=== PATIENT | male | born 1985 | race Caucasian/White ===

== ENCOUNTER 2017-09-26 09:09 | Day surgery (SDC) | payer OTHER ==
[~2017-09-26] VITALS: Ht 177.8 cm; Wt 71.4 kg
[~2017-09-26 09:09] MED LIST: GABA600T2 PO; IBUP-1984 PO; LOPE2CAP PO; ONDA8TAB9 PO; PSEU-259 PO; RANI150T44 PO; SUMA50TA PO
[2017-09-26] MEDS ORDERED: DEXL60CA3 PO (09:32)
[2017-09-26] MEDS ORDERED: CETI-102 PO (09:32)
[2017-09-26 09:37] VITALS: BP 128/80
[2017-09-26] MEDS ORDERED: LIDOcaine Viscous 15ml cup ONE (09:48)
[2017-09-26] MEDS ORDERED: fentaNYL/PF 50MCG/1 ML 2ML syringe ONE (09:48)
[2017-09-26] MEDS ORDERED: MIDAZolam 5mg/5ml vial ONE (09:48)
[2017-09-26 10:40] VITALS: BP 115/73
[2017-09-26 10:50] VITALS: BP 115/72
[2017-09-26 11:00] VITALS: BP 123/35
== END 2017-09-26 11:10 | disposition home or self-care (01) ==
LOC: GI LAB 09:09
PROVIDERS: ATTEND Internal Medicine Gastroenterology
DX: K29.50 Unspecified chronic gastritis without bleeding (principal); K44.9 Diaphragmatic hernia without obstruction or gangrene; G89.29 Other chronic pain; Z79.891 Long term (current) use of opiate analgesic; Z87.891 Personal history of nicotine dependence; Z98.890 Other specified postprocedural states; Z79.899 Other long term (current) drug therapy
CPT/HCPCS: 43239; 99152; J2250; J3010; J7030; A4620; G0500

== ENCOUNTER 2017-10-23 08:33 | Outpatient (CLI) | payer OTHER ==
[~2017-10-23 08:33] MED LIST changes: +CETI-102 PO; +DEXL60CA3 PO; -IBUP-1984 PO; -LOPE2CAP PO; -ONDA8TAB9 PO; -PSEU-259 PO; -RANI150T44 PO; -SUMA50TA PO
== END 2017-10-23 23:59 | disposition home or self-care (01) ==
LOC: 64 CT 08:33
PROVIDERS: ATTEND Family Medicine
DX: K29.70 Gastritis, unspecified, without bleeding (principal); K52.9 Noninfective gastroenteritis and colitis, unspecified
CPT/HCPCS: 74176

== ENCOUNTER 2018-02-25 19:41 | Emergency (ER) | payer OTHER ==
[~2018-02-25] VITALS: Ht 177.8 cm; Wt 76.0 kg
[2018-02-25 20:11] LABS: CLARITY,URINE CLEAR (Clear); COLOR,URINE YELLOW (Yellow); GLUCOSE, URINE NEGATIVE (Neg); KETONES,URINE NEGATIVE (Neg); LEUKOCYTE ESTERASE ,URINE NEGATIVE (Neg); NITRITES, URINE NEGATIVE (Neg); OCCULT BLOOD,URINE NEGATIVE (Neg); PROTEIN,URINE NEGATIVE (Neg); UROBILINOGEN,URINE 0.2 E.U/dL (0.2-1.0)
[2018-02-25 20:14] LABS: UA COLLECTION TYPE CLN CATCH MIDSTREAM
[2018-02-25] MEDS ORDERED: ONDA8TAB9 PO (20:26)
[2018-02-25 20:33] VITALS: BP 125/85
== END 2018-02-25 20:34 | disposition home or self-care (01) ==
LOC: ER 19:42
DX: K14.3 Hypertrophy of tongue papillae (principal); R14.0 Abdominal distension (gaseous); R59.0 Localized enlarged lymph nodes; R11.0 Nausea; K59.00 Constipation, unspecified; G89.29 Other chronic pain; K21.9 Gastro-esophageal reflux disease without esophagitis; G43.909 Migraine, unspecified, not intractable, without status migrainosus; Z79.899 Other long term (current) drug therapy
CPT/HCPCS: 81003; 99283

== ENCOUNTER 2018-03-01 19:58 | Emergency (ER) | payer OTHER ==
[~2018-03-01] VITALS: Ht 177.8 cm; Wt 63.1 kg
[~2018-03-01 19:58] MED LIST changes: +ONDA8TAB9 PO
[2018-03-01] MEDS ORDERED: ondansetron/PF 4mg/2ml inj IV ONE (20:40)
[2018-03-01] MEDS ORDERED: ketorolac trometh. 30mg/ml inj. IV ONE (20:40)
[2018-03-01 20:42] LABS: BASOPHILS % (AUTO) 0.2 % (0-1); EOSINOPHILS # (AUTO) 0.2 X10'3 (0-0.9); EOSINOPHILS % (AUTO) 1.9 % (0-6); HEMATOCRIT 39.4 % (42.0-52.0); LYMPHOCYTES # (AUTO) 2.6 X10'3 (1.1-4.8); MEAN CORPUSCULAR HEMOGLOBIN 30.4 PG (27.0-31.0); MEAN CORPUSCULAR VOLUME 92.1 FL (78-98); MEAN PLATELET VOLUME 7.2 FL (7.4-10.4); MONOCYTES # (AUTO) 0.6 X10'3 (0-0.9); MONOCYTES % (AUTO) 7.8 % (2-12); NEUTROPHILS # (AUTO) 4.9 X10'3 (1.8-7.7); NEUTROPHILS % (AUTO) 59.1 % (42-75); PLATELET COUNT 389 X10'3 (140-440); RED BLOOD COUNT 4.28 X10'6 (4.70-6.10); RED CELL DISTRIBUTION WIDTH 12.8 % (11.5-14.5); WHITE BLOOD COUNT 8.3 X10'3 (4.5-11.0)
[2018-03-01 20:49] LABS: PROTHROMBIN TIME 10.2 SECONDS (9.0-12.0)
[2018-03-01 20:49] LABS: CLARITY,URINE CLEAR (Clear); COLOR,URINE YELLOW (Yellow); GLUCOSE, URINE NEGATIVE (Neg); KETONES,URINE NEGATIVE (Neg); LEUKOCYTE ESTERASE ,URINE NEGATIVE (Neg); NITRITES, URINE NEGATIVE (Neg); OCCULT BLOOD,URINE NEGATIVE (Neg); PH,URINE 6.5 (4.8-8.0); PROTEIN,URINE NEGATIVE (Neg); UA COLLECTION TYPE CLN CATCH MIDSTREAM; UROBILINOGEN,URINE 0.2 E.U/dL (0.2-1.0)
[2018-03-01] MEDS ORDERED: normal saline 1000ML IV soln IVB ONE (20:50)
[2018-03-01] MEDS ORDERED: iohexol 300mg/ml 100ml inj. ONE (20:54)
[2018-03-01 21:01] LABS: ALANINE AMINOTRANSFERASE 22 U/L (12-78); ALBUMIN 4.5 G/DL (3.4-5.0); ALBUMIN/GLOBULIN RATIO 1.3 (1.1-1.5); ALKALINE PHOSPHATASE 76 IU/L (46-116); ANION GAP 11 (8-16); ASPARTATE AMINO TRANSFERASE 18 U/L (10-37); BILIRUBIN,TOTAL 0.2 MG/DL (0.1-1.0); BLOOD UREA NITROGEN 13 MG/DL (7-18); BUN/CREATININE RATIO 15.1 (5.4-32.0); CALCIUM 9.4 MG/DL (8.5-10.1); CHLORIDE 100 MMOL/L (99-107); CREATININE 0.86 MG/DL (0.60-1.10); GLUCOSE 84 MG/DL (70-104); POTASSIUM 3.4 MMOL/L (3.5-5.1); SODIUM 140 MMOL/L (135-145); TOTAL CARBON DIOXIDE 29.3 MMOL/L (24-32); TOTAL PROTEIN 7.9 G/DL (6.4-8.2); eGFR > 90 ML/MIN
[2018-03-01] MEDS ORDERED: morphine 4 MG/ML inj SYRINge IV ONE (21:25)
[2018-03-01] MEDS ORDERED: HYDROcodone/acetaminophen 5mg/325mg tablet PO ONE (22:25)
[2018-03-01 22:38] VITALS: BP 109/67
== END 2018-03-01 22:52 | disposition home or self-care (01) ==
LOC: EEVIPCON 19:58 → ER 19:58
DX: R10.31 Right lower quadrant pain (principal); G89.29 Other chronic pain; Z79.899 Other long term (current) drug therapy
CPT/HCPCS: 36415; 74177; 80053; 81003; 85025; 85610; 96374; 96375; 99284; J1885; J2270; J2405; J7030; Q9967

== ENCOUNTER 2018-03-02 16:19 | Emergency (ER) | payer OTHER ==
[~2018-03-02] VITALS: Ht 180.3 cm; Wt 75.0 kg
[2018-03-02] MEDS ORDERED: normal saline 1000ML IV soln IVB ONE (17:00)
[2018-03-02] MEDS ORDERED: ondansetron/PF 4mg/2ml inj IV ONE (17:00)
[2018-03-02 17:22] LABS: BASOPHILS % (AUTO) 0.5 % (0-1); EOSINOPHILS # (AUTO) 0.1 X10'3 (0-0.9); EOSINOPHILS % (AUTO) 1.8 % (0-6); HEMATOCRIT 36.6 % (42.0-52.0); HEMOGLOBIN 12.3 g/dl (14.0-17.9); LYMPHOCYTES # (AUTO) 2.1 X10'3 (1.1-4.8); LYMPHOCYTES % (AUTO) 31.6 % (21-51); MEAN CORPUSCULAR HEMOGLOBIN 30.7 PG (27.0-31.0); MEAN CORPUSCULAR HGB CONC 33.7 % (33.0-36.5); MEAN CORPUSCULAR VOLUME 91.1 FL (78-98); MEAN PLATELET VOLUME 7.4 FL (7.4-10.4); MONOCYTES # (AUTO) 0.6 X10'3 (0-0.9); MONOCYTES % (AUTO) 8.4 % (2-12); NEUTROPHILS # (AUTO) 3.8 X10'3 (1.8-7.7); NEUTROPHILS % (AUTO) 57.7 % (42-75); PLATELET COUNT 353 X10'3 (140-440); RED BLOOD COUNT 4.02 X10'6 (4.70-6.10); RED CELL DISTRIBUTION WIDTH 12.7 % (11.5-14.5); WHITE BLOOD COUNT 6.6 X10'3 (4.5-11.0)
[2018-03-02 17:37] LABS: ALANINE AMINOTRANSFERASE 21 U/L (12-78); ALBUMIN 3.9 G/DL (3.4-5.0); ALBUMIN/GLOBULIN RATIO 1.3 (1.1-1.5); ALKALINE PHOSPHATASE 69 IU/L (46-116); ANION GAP 10 (8-16); ASPARTATE AMINO TRANSFERASE 18 U/L (10-37); BILIRUBIN,TOTAL 0.1 MG/DL (0.1-1.0); BLOOD UREA NITROGEN 9 MG/DL (7-18); BUN/CREATININE RATIO 11.1 (5.4-32.0); C-REACTIVE PROTEIN 1.46 MG/DL (0.0-0.5); CALCIUM 8.9 MG/DL (8.5-10.1); CHLORIDE 103 MMOL/L (99-107); CREATININE 0.81 MG/DL (0.60-1.10); GLUCOSE 109 MG/DL (70-104); POTASSIUM 3.5 MMOL/L (3.5-5.1); SODIUM 142 MMOL/L (135-145); TOTAL CARBON DIOXIDE 28.6 MMOL/L (24-32); eGFR > 90 ML/MIN
[2018-03-02 17:41] VITALS: BP 123/72
[2018-03-02] MEDS ORDERED: albuterol 2.5 MG/3 ML nebule NEB ONE (19:05)
[2018-03-03] MEDS ORDERED: GOLYS PO (08:52)
== END 2018-03-02 19:06 | disposition home or self-care (01) ==
LOC: ER 16:19
DX: R10.84 Generalized abdominal pain (principal); G43.909 Migraine, unspecified, not intractable, without status migrainosus; G89.29 Other chronic pain; Z79.899 Other long term (current) drug therapy
CPT/HCPCS: 36415; 80053; 85025; 85651; 86140; 96361; 96374; 99283; J2405; J7030

== ENCOUNTER 2018-03-03 06:12 | Emergency (ER) | payer OTHER ==
[~2018-03-03] VITALS: Ht 180.3 cm; Wt 80.1 kg
[2018-03-03] MEDS ORDERED: normal saline 1000ML IV soln IVB ONE ×2 (07:05)
[2018-03-03] MEDS ORDERED: proCHLORperazine 10 MG/2 ml inj IV ONE (07:05)
[2018-03-03] MEDS ORDERED: normal saline 1000ml 2,000 ML IV ONE (07:20)
[2018-03-03] MEDS: morphine 2 MG/ML inj. syringe IV PRN ×2 (07:21→08:06)
[2018-03-03 07:36] LABS: BASOPHILS % (AUTO) 0.2 % (0-1); EOSINOPHILS # (AUTO) 0.2 X10'3 (0-0.9); EOSINOPHILS % (AUTO) 2.2 % (0-6); HEMATOCRIT 36.2 % (42.0-52.0); LYMPHOCYTES # (AUTO) 1.8 X10'3 (1.1-4.8); LYMPHOCYTES % (AUTO) 22.9 % (21-51); MEAN CORPUSCULAR HEMOGLOBIN 30.4 PG (27.0-31.0); MEAN CORPUSCULAR HGB CONC 33.2 % (33.0-36.5); MEAN CORPUSCULAR VOLUME 91.7 FL (78-98); MEAN PLATELET VOLUME 7.5 FL (7.4-10.4); MONOCYTES # (AUTO) 0.7 X10'3 (0-0.9); MONOCYTES % (AUTO) 8.4 % (2-12); NEUTROPHILS # (AUTO) 5.2 X10'3 (1.8-7.7); NEUTROPHILS % (AUTO) 66.3 % (42-75); PLATELET COUNT 355 X10'3 (140-440); RED BLOOD COUNT 3.95 X10'6 (4.70-6.10); RED CELL DISTRIBUTION WIDTH 12.5 % (11.5-14.5); WHITE BLOOD COUNT 7.9 X10'3 (4.5-11.0)
[2018-03-03 07:37] LABS: ALANINE AMINOTRANSFERASE 21 U/L (12-78); ALBUMIN 3.8 G/DL (3.4-5.0); ALBUMIN/GLOBULIN RATIO 1.2 (1.1-1.5); ALKALINE PHOSPHATASE 62 IU/L (46-116); ANION GAP 9 (8-16); ASPARTATE AMINO TRANSFERASE 15 U/L (10-37); BILIRUBIN,TOTAL 0.1 MG/DL (0.1-1.0); BLOOD UREA NITROGEN 4 MG/DL (7-18); BUN/CREATININE RATIO 4.4 (5.4-32.0); CALCIUM 8.6 MG/DL (8.5-10.1); CHLORIDE 103 MMOL/L (99-107); CREATININE 0.91 MG/DL (0.60-1.10); GLUCOSE 102 MG/DL (70-104); POTASSIUM 3.2 MMOL/L (3.5-5.1); SODIUM 142 MMOL/L (135-145); TOTAL CARBON DIOXIDE 29.6 MMOL/L (24-32); eGFR > 90 ML/MIN
[2018-03-03] MEDS ORDERED: GOLYS PO (08:52)
[2018-03-03 09:31] VITALS: BP 124/79
== END 2018-03-03 09:33 | disposition home or self-care (01) ==
LOC: ER 06:12
DX: R10.33 Periumbilical pain (principal); K59.00 Constipation, unspecified; R11.10 Vomiting, unspecified; G43.909 Migraine, unspecified, not intractable, without status migrainosus; G89.29 Other chronic pain; Z79.899 Other long term (current) drug therapy
CPT/HCPCS: 36415; 74018; 80053; 85025; 96361; 96374; 96375; 96376; 99284; J0780; J2270; J7030

== ENCOUNTER 2018-03-24 15:37 | Emergency (ER) | payer OTHER ==
[~2018-03-24] VITALS: Ht 177.8 cm; Wt 81.0 kg
[~2018-03-24 15:37] MED LIST changes: +GOLYS PO
[2018-03-24 15:51] VITALS: BP 136/89
[2018-03-24] MEDS ORDERED: dexamethasone sod phosphate 10mg/ml inj IM STA (15:57)
[2018-03-24] MEDS ORDERED: mag hydrox/Alum hydrox/simeth 30ml oral suspension PO ONE (16:00)
[2018-03-24] MEDS ORDERED: LIDOcaine Viscous 15ml cup PO ONE (16:00)
[2018-03-24] MEDS ORDERED: sucralfate 1 gm tablet PO ONE (16:00)
[2018-03-24] MEDS ORDERED: METH4TAB3 PO (16:02)
== END 2018-03-24 16:27 | disposition home or self-care (01) ==
LOC: ER 15:37
DX: J04.0 Acute laryngitis (principal); G89.29 Other chronic pain; G43.909 Migraine, unspecified, not intractable, without status migrainosus; Z79.899 Other long term (current) drug therapy
CPT/HCPCS: 96372; 99284; J1100

== ENCOUNTER 2018-06-13 14:12 | Emergency (ER) | payer OTHER ==
[~2018-06-13] VITALS: Ht 177.8 cm; Wt 77.0 kg
[~2018-06-13 14:12] MED LIST changes: +GABA600T13 PO; -GABA600T2 PO; +METH4TAB3 PO
[2018-06-13] MEDS ORDERED: GOLYS PO ×2 (14:59→15:06)
[2018-06-13] MEDS ORDERED: famotidine 20mg tablet PO ONE (15:00)
[2018-06-13] MEDS ORDERED: mag hydrox/Alum hydrox/simeth 30ml oral suspension PO ONE (15:00)
[2018-06-13 15:15] VITALS: BP 123/83
== END 2018-06-13 15:20 | disposition home or self-care (01) ==
LOC: EEVIPCON 14:12 → ER 14:12
DX: K59.00 Constipation, unspecified (principal); K21.9 Gastro-esophageal reflux disease without esophagitis; G43.909 Migraine, unspecified, not intractable, without status migrainosus; G89.29 Other chronic pain; Z79.899 Other long term (current) drug therapy
CPT/HCPCS: 99283

== ENCOUNTER 2018-06-16 15:28 | Inpatient (IN) | payer OTHER ==
[2018-06-16] VITALS: BP 114/71
[~2018-06-16] VITALS: Ht 177.8 cm; Wt 85.0 kg
[2018-06-16] MEDS ORDERED: ondansetron/PF 4mg/2ml inj IV ONE (15:45)
[2018-06-16] MEDS ORDERED: normal saline 1000ML IV soln IVB ONE (15:45)
[2018-06-16] MEDS: morphine 4 MG/ML inj SYRINge IV PRN ×5 (15:47→20:30)
[2018-06-16 16:05] LABS: BASOPHILS % (AUTO) 0.6 % (0-1); EOSINOPHILS # (AUTO) 0.3 X10'3 (0-0.9); EOSINOPHILS % (AUTO) 5.9 % (0-6); HEMATOCRIT 40.4 % (42.0-52.0); HEMOGLOBIN 13.5 g/dl (14.0-17.9); LYMPHOCYTES # (AUTO) 2.4 X10'3 (1.1-4.8); LYMPHOCYTES % (AUTO) 44.4 % (21-51); MEAN CORPUSCULAR HEMOGLOBIN 30.8 PG (27.0-31.0); MEAN CORPUSCULAR HGB CONC 33.4 g/dL (33.0-36.5); MEAN PLATELET VOLUME 7.7 FL (7.4-10.4); MONOCYTES # (AUTO) 0.4 X10'3 (0-0.9); MONOCYTES % (AUTO) 7.3 % (2-12); NEUTROPHILS # (AUTO) 2.3 X10'3 (1.8-7.7); NEUTROPHILS % (AUTO) 41.8 % (42-75); PLATELET COUNT 272 X10'3 (140-440); RED BLOOD COUNT 4.39 X10'6 (4.70-6.10); WHITE BLOOD COUNT 5.5 X10'3 (4.5-11.0)
[2018-06-16 16:17] LABS: ALANINE AMINOTRANSFERASE 28 U/L (12-78); ALBUMIN 4.6 G/DL (3.4-5.0); ALBUMIN/GLOBULIN RATIO 1.6 (1.1-1.5); ALKALINE PHOSPHATASE 62 IU/L (46-116); ANION GAP 9 (8-16); ASPARTATE AMINO TRANSFERASE 21 U/L (10-37); BILIRUBIN,TOTAL 0.3 MG/DL (0.1-1.0); BLOOD UREA NITROGEN 20 MG/DL (7-18); BUN/CREATININE RATIO 22.2 (5.4-32.0); CALCIUM 9.2 MG/DL (8.5-10.1); CHLORIDE 104 MMOL/L (99-107); GLUCOSE 109 MG/DL (70-104); SODIUM 141 MMOL/L (135-145); TOTAL CARBON DIOXIDE 27.7 MMOL/L (24-32); TOTAL PROTEIN 7.4 G/DL (6.4-8.2); eGFR > 90 ML/MIN
[2018-06-16] MEDS ORDERED: morphine 4 MG/ML inj SYRINge IV ONE (16:20)
[2018-06-16] MEDS ORDERED: ketorolac trometh. 30mg/ml inj. IV ONE (16:20)
[2018-06-16 16:37] LABS: POTASSIUM 2.9 MMOL/L (3.5-5.1)
--- NOTE | 2018-06-16 16:41 | NUR ---
K 2.9 REPORTED TO BRENDON GARCIA
[2018-06-16] MEDS ORDERED: iohexol 300mg/ml 100ml inj. ONE (16:43)
[2018-06-16 16:51] LABS: LIPASE 9953 U/L (73-393)
[2018-06-16] MEDS ORDERED: Potassium Cl inj 40 MEQ in normal saline 250ml IV soln 230 ML IV ONE (17:05)
[2018-06-16] MEDS ORDERED: Potassium Cl 40 MEQ in NS 500 ML IV ONE (17:15)
[2018-06-16] MEDS ORDERED: SUMA100T16 PO (17:46)
[2018-06-16] MEDS ORDERED: METO10TA3 PO (17:46)
[2018-06-16] MEDS ORDERED: OMEP-50 PO (17:46)
[2018-06-16 17:47] LABS: CLARITY,URINE CLEAR (Clear); COLOR,URINE YELLOW (Yellow); GLUCOSE, URINE NEGATIVE (Neg); KETONES,URINE NEGATIVE (Neg); LEUKOCYTE ESTERASE ,URINE NEGATIVE (Neg); NITRITES, URINE NEGATIVE (Neg); OCCULT BLOOD,URINE NEGATIVE (Neg); PH,URINE 6.5 (4.8-8.0); PROTEIN,URINE NEGATIVE (Neg); UROBILINOGEN,URINE 0.2 E.U/dL (0.2-1.0)
[2018-06-16] MEDS ORDERED: DICY20TA14 PO (17:48)
[2018-06-16 17:50] LABS: UA COLLECTION TYPE NON-SPECIFIED
[2018-06-16] MEDS ORDERED: HYDROmorphone 1 mg/ml syringe IV ONE (18:20)
[2018-06-16] MEDS ORDERED: magnesium hydroxide 30ml (MOM) UD suspension PO PRN (19:55)
[2018-06-16] MEDS ORDERED: HYDROcodone/acetaminophen 5mg/325mg tablet PO PRN (19:55)
[2018-06-16] MEDS ORDERED: magnesium 4gm in 100ml NS 100 ML IV PRN (19:55)
[2018-06-16] MEDS ORDERED: magnesium 2GM in 50ml NS 50 ML IV PRN (19:55)
[2018-06-16] MEDS ORDERED: mag hydrox/Alum hydrox/simeth 30ml oral suspension PO PRN (19:55)
[2018-06-16] MEDS ORDERED: ondansetron/PF 4mg/2ml inj IV PRN (19:55)
[2018-06-16] MEDS ORDERED: magnesium Cl slow-release 64mg tablet PO PRN (19:55)
[2018-06-16] MEDS ORDERED: potassium Cl 40MEQ/NS 500ml 500 ML IV PRN ×2 (19:55)
[2018-06-16] MEDS ORDERED: HYDROcodone/acetaminophen 10/325mg tab PO PRN (19:55)
[2018-06-16] MEDS ORDERED: potassium Cl 20 mEq SR tablet PO PRN ×2 (19:55)
[2018-06-16] MEDS ORDERED: morphine 4 MG/ML inj SYRINge IV PRN ×2 (19:55)
[2018-06-16] MEDS ORDERED: acetaminophen 325mg tablet PO PRN ×2 (19:55)
--- NOTE | 2018-06-16 21:30 | NUR ---
Patient to room 355 B from the ED. Patient report received from DEMETRIA Arevalo. Patient alert and oriented at this time. VSS. BLL. call light in reach. Will page about casandra lakhani for pain control at patient request.
[2018-06-16] MEDS ORDERED: CADD PCA waste documentation MC SCH (22:35)
[2018-06-16] MEDS: normal saline 1000ml 1,000 ML IV SCH (23:08)
[2018-06-16] MEDS: HYDROmorphone/NS 1 mg/ml CADD 50 ML IV SCH (23:13)
[2018-06-16] MEDS: heparin, porcine 5000 units/ml vial SQ SCH (23:49)
[2018-06-16] MEDS ORDERED: ondansetron 4mg rapidly disintigrating tab PO PRN (23:50)
[2018-06-16] MEDS ORDERED: SUMAtriptan 25 MG tablet PO PRN (23:50)
[2018-06-16] MEDS ORDERED: metoclopramide 10mg tablet PO PRN (23:50)
[2018-06-17] MEDS: gabapentin 300mg capsule PO SCH ×4 (00:18→23:50)
[2018-06-17] MEDS: famotidine/PF 10 mg/ml inj IV SCH ×2 (00:18→07:12)
[2018-06-17] MEDS: HYDROmorphone/NS 1 mg/ml CADD 50 ML IV SCH ×6 (01:00→10:55)
[2018-06-17 05:28] LABS: BASOPHILS % (AUTO) 0.6 % (0-1); EOSINOPHILS # (AUTO) 0.3 X10'3 (0-0.9); EOSINOPHILS % (AUTO) 6.8 % (0-6); HEMATOCRIT 36.4 % (42.0-52.0); HEMOGLOBIN 12.2 g/dl (14.0-17.9); LYMPHOCYTES # (AUTO) 1.1 X10'3 (1.1-4.8); MEAN CORPUSCULAR HGB CONC 33.4 g/dL (33.0-36.5); MEAN CORPUSCULAR VOLUME 92.9 FL (78-98); MEAN PLATELET VOLUME 7.9 FL (7.4-10.4); MONOCYTES # (AUTO) 0.5 X10'3 (0-0.9); MONOCYTES % (AUTO) 11.6 % (2-12); NEUTROPHILS # (AUTO) 2.7 X10'3 (1.8-7.7); PLATELET COUNT 224 X10'3 (140-440); RED BLOOD COUNT 3.92 X10'6 (4.70-6.10); RED CELL DISTRIBUTION WIDTH 13.1 % (11.5-14.5); WHITE BLOOD COUNT 4.6 X10'3 (4.5-11.0)
[2018-06-17 05:48] LABS: ALBUMIN 3.6 G/DL (3.4-5.0); ANION GAP 4 (8-16); BLOOD UREA NITROGEN 17 MG/DL (7-18); BUN/CREATININE RATIO 21.3 (5.4-32.0); CHLORIDE 108 MMOL/L (99-107); CHOL/HDL RATIO 6.7 (0.00-4.99); CHOLESTEROL 181 MG/DL (0-200); GLUCOSE 99 MG/DL (70-104); HDL CHOLESTEROL 27 MG/DL (35-60); LDL CHOLESTEROL 117 MG/DL (50-100); LIPASE 1126 U/L (73-393); MAGNESIUM 2.3 MG/DL (1.5-2.4); PHOSPHORUS 3.4 MG/DL (2.3-4.5); POTASSIUM 3.9 MMOL/L (3.5-5.1); SODIUM 142 MMOL/L (135-145); TOTAL CARBON DIOXIDE 30.4 MMOL/L (24-32); TRIGLYCERIDES 246 MG/DL (20-135); eGFR > 90 ML/MIN
[2018-06-17] MEDS: normal saline 1000ml 1,000 ML IV SCH ×2 (05:52→08:51)
--- NOTE | 2018-06-17 06:30 | NUR ---
Problems reprioritized. Patient report given, questions answered & plan of care reviewed with DEMETRIA Cam.
[2018-06-17] MEDS: heparin, porcine 5000 units/ml vial SQ SCH ×2 (07:17→20:52)
[2018-06-17] MEDS: K and/or MAG REPLACEMENT MC SCH (07:20)
[2018-06-17 08:00] VITALS: BP 109/76
[2018-06-17] MEDS: HYDROcodone/acetaminophen 5mg/325mg tablet PO PRN (11:55)
[2018-06-17 12:00] VITALS: BP 118/75
--- NOTE | 2018-06-17 12:14 | NUR ---
Malnutrition consult: Pt admit w/ abdominal pain and mild/early pancreatitis per CT w/ lipase 9953; down to 1126 today. TG 234 as well. Per MD note possibly r/t omeprazole pt takes at home for GERD hx. Likely TG also influencing given labs. Pt advanced to clear liquids from NPO. Pt seen by RD for written hypertriglyceridemia ed; pt remains nauseous and RD encouraged to contact if any questions. Pt agrees to ensure clears TIDWM w/ new diet advancement; added to meals and dietary/MD notified. 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 Pt has no edema/wounds, no wt loss hx, no weakness and does not qualify for malnutrition at this time. Will continue to monitor for diet advancement and PO tolerance. Rec: 1. advance diet per MD to heart healthy 2. ensure enlive TIDWM while on clears 3. monitor for further ONS needs once diet advances 4. wt per rx Addendum: 06/17/18 at [address] Amended: Links added.
[2018-06-17] MEDS ORDERED: NUT.TX.IMPAIRED DIGEST FXN (Ensure Clear) 237 ML PO SCH (13:00)
[2018-06-17] MEDS ORDERED: SUMAtriptan succ. 6 MG/0.5ml vial SQ ONE (14:25)
[2018-06-17] MEDS ORDERED: ketorolac trometh. 30mg/ml inj. IV PRN (14:25)
[2018-06-17] MEDS: ondansetron/PF 4mg/2ml inj IV PRN (15:05)
[2018-06-17] MEDS: pantoprazole 40 MG vial IV SCH (15:05)
--- NOTE | 2018-06-17 18:30 | NUR ---
Patient in room [facility]. I have received report from Dorina AUGUSTIN and had the opportunity to ask questions and assume patient care. Patient resting in bed, and daughter visiting and headed home. Patient denies nausea and pain. Will continue to monitor.
--- NOTE | 2018-06-17 18:43 | NUR ---
Problems reprioritized. Patient report given, questions answered & plan of care reviewed with LIA AUGUSTIN.
[2018-06-17 19:00] VITALS: BP 120/72
[2018-06-17] MEDS ORDERED: Potassium Cl inj 20 MEQ in normal saline 1000ml 1,000 ML IV SCH (19:52)
[2018-06-17] MEDS: Potassium Cl inj 20 MEQ in normal saline 1000ml 1,000 ML IV SCH (20:50)
[2018-06-17] MEDS ORDERED: docusate sod 250mg capsule PO SCH (21:00)
[2018-06-18] VITALS: BP 113/76
[2018-06-18 05:27] LABS: ALBUMIN 3.9 G/DL (3.4-5.0); ANION GAP 8 (8-16); BLOOD UREA NITROGEN 6 MG/DL (7-18); BUN/CREATININE RATIO 7.2 (5.4-32.0); CALCIUM 9.4 MG/DL (8.5-10.1); CHLORIDE 103 MMOL/L (99-107); CREATININE 0.83 MG/DL (0.60-1.10); GLUCOSE 99 MG/DL (70-104); LIPASE 195 U/L (73-393); PHOSPHORUS 3.5 MG/DL (2.3-4.5); POTASSIUM 3.8 MMOL/L (3.5-5.1); SODIUM 138 MMOL/L (135-145); TOTAL CARBON DIOXIDE 27.2 MMOL/L (24-32); eGFR > 90 ML/MIN
[2018-06-18] MEDS: Potassium Cl inj 20 MEQ in normal saline 1000ml 1,000 ML IV SCH (05:58)
--- NOTE | 2018-06-18 06:05 | NUR ---
Patient in room [facility]. I have received report from DEMETRIA Mauro and had the opportunity to ask questions and assume patient care.
--- NOTE | 2018-06-18 06:11 | NUR ---
Problems reprioritized. Patient report given, questions answered & plan of care reviewed with Asha AUGUSTIN and Tamia RN. Patient resting eyes closed respirations even.
[2018-06-18 07:30] VITALS: BP 124/80
[2018-06-18] MEDS: ondansetron/PF 4mg/2ml inj IV PRN (07:32)
[2018-06-18] MEDS: HYDROcodone/acetaminophen 5mg/325mg tablet PO PRN (07:35)
[2018-06-18] MEDS: K and/or MAG REPLACEMENT MC SCH (08:00)
[2018-06-18] MEDS ORDERED: metoclopramide 5 mg/ml inj IV ONE (09:10)
[2018-06-18] MEDS: pantoprazole 40 MG vial IV SCH (10:15)
[2018-06-18] MEDS: heparin, porcine 5000 units/ml vial SQ SCH (10:16)
[2018-06-18] MEDS: gabapentin 300mg capsule PO SCH (10:16)
[2018-06-18] MEDS ORDERED: PANT-47 PO (13:14)
[2018-06-18] MEDS ORDERED: DOCU-28 PO (13:19)
--- NOTE | 2018-06-18 16:00 | NUR ---
Pt discharged to home with all belongings in private vehicle. Discharge instructions and medications reviewed. New prescriptions delivered by [facility]. IV DC'd, cannula intact. Pt instructed to follow up with PCP in 1 week and to return to ED if symptoms return. Pt escorted to front lobby by RN.
== END 2018-06-18 15:55 | disposition home or self-care (01) | DRG 440 ==
LOC: ER 15:28 → ED HOLD 19:57 → EDBEDREQ 21:24 → SUR 3N 21:50 → CMPBEDREQ 22:32
PROVIDERS: ADMIT Hospitalist; ATTEND Internal Medicine
PROC: BW211ZZ Computerized Tomography (CT Scan) of Abdomen and Pelvis using Low Osmolar Contrast (ICD-10-PCS; principal; 2018-06-16)
DX: K85.00 Idiopathic acute pancreatitis without necrosis or infection (principal); E86.0 Dehydration; E87.6 Hypokalemia; K21.9 Gastro-esophageal reflux disease without esophagitis; K29.50 Unspecified chronic gastritis without bleeding; K59.09 Other constipation; G43.909 Migraine, unspecified, not intractable, without status migrainosus; G89.29 Other chronic pain; Z79.899 Other long term (current) drug therapy
CPT/HCPCS: 36415; 74177; 76700; 80048; 80053; 80061; 81003; 83690; 83735; 84100; 85025; 87070; 96365; 96375; 99285; C9113; G0378; J1170; J1644; J1885; J2270; J2405; J2765; J3030; J3480; J3490; J7030; J8597; Q9967

== ENCOUNTER 2018-08-18 13:31 | Emergency (ER) | payer OTHER ==
[~2018-08-18] VITALS: Ht 177.8 cm; Wt 81.8 kg
[~2018-08-18 13:31] MED LIST changes: -CETI-102 PO; -DEXL60CA3 PO; +DOCU-28 PO; -GOLYS PO; -METH4TAB3 PO; +METO10TA3 PO; -ONDA8TAB9 PO; +PANT-47 PO; +SUMA100T16 PO
[2018-08-18] MEDS ORDERED: normal saline 1000ML IV soln IVB ONE (13:50)
[2018-08-18] MEDS ORDERED: ondansetron/PF 4mg/2ml inj IV ONE (13:50)
[2018-08-18 14:06] LABS: BASOPHILS % (AUTO) 0.6 % (0-1); EOSINOPHILS # (AUTO) 0.4 X10'3 (0-0.9); EOSINOPHILS % (AUTO) 5.7 % (0-6); HEMATOCRIT 41.4 % (42.0-52.0); HEMOGLOBIN 14.1 g/dl (14.0-17.9); LYMPHOCYTES # (AUTO) 2.1 X10'3 (1.1-4.8); LYMPHOCYTES % (AUTO) 28.2 % (21-51); MEAN CORPUSCULAR HEMOGLOBIN 30.7 PG (27.0-31.0); MEAN CORPUSCULAR HGB CONC 34.1 g/dL (33.0-36.5); MEAN CORPUSCULAR VOLUME 89.9 FL (78-98); MEAN PLATELET VOLUME 8.4 FL (7.4-10.4); MONOCYTES # (AUTO) 0.6 X10'3 (0-0.9); MONOCYTES % (AUTO) 7.8 % (2-12); NEUTROPHILS # (AUTO) 4.3 X10'3 (1.8-7.7); NEUTROPHILS % (AUTO) 57.7 % (42-75); PLATELET COUNT 275 X10'3 (140-440); RED CELL DISTRIBUTION WIDTH 13.3 % (11.5-14.5); WHITE BLOOD COUNT 7.5 X10'3 (4.5-11.0)
[2018-08-18 14:13] LABS: ALANINE AMINOTRANSFERASE 22 U/L (12-78); ALBUMIN 4.6 G/DL (3.4-5.0); ALBUMIN/GLOBULIN RATIO 1.4 (1.1-1.5); ALKALINE PHOSPHATASE 59 IU/L (46-116); ANION GAP 8 (8-16); ASPARTATE AMINO TRANSFERASE 11 U/L (10-37); BILIRUBIN,TOTAL 0.3 MG/DL (0.1-1.0); BLOOD UREA NITROGEN 13 MG/DL (7-18); BUN/CREATININE RATIO 12.4 (5.4-32.0); CALCIUM 9.4 MG/DL (8.5-10.1); CHLORIDE 102 MMOL/L (99-107); CREATININE 1.05 MG/DL (0.60-1.10); GLUCOSE 97 MG/DL (70-104); LIPASE 95 U/L (73-393); POTASSIUM 3.4 MMOL/L (3.5-5.1); SODIUM 139 MMOL/L (135-145); TOTAL CARBON DIOXIDE 28.6 MMOL/L (24-32); TOTAL PROTEIN 7.9 G/DL (6.4-8.2); eGFR 82 ML/MIN
[2018-08-18] MEDS ORDERED: ONDA4TAB12 PO (14:30)
[2018-08-18 14:39] VITALS: BP 104/58
== END 2018-08-18 14:41 | disposition home or self-care (01) ==
LOC: ER 13:32
DX: E86.0 Dehydration (principal); R11.2 Nausea with vomiting, unspecified; R10.84 Generalized abdominal pain; G43.909 Migraine, unspecified, not intractable, without status migrainosus; K21.9 Gastro-esophageal reflux disease without esophagitis; G89.29 Other chronic pain; Z79.899 Other long term (current) drug therapy
CPT/HCPCS: 36415; 80053; 83690; 85025; 85610; 96361; 96374; 99283; J2405; J7030

== ENCOUNTER 2018-09-24 10:23 | Outpatient (CLI) | payer OTHER ==
[~2018-09-24 10:23] MED LIST changes: +ONDA4TAB12 PO
[2018-09-24 11:48] LABS: CHOL/HDL RATIO 5.2 (0.00-4.99); CHOLESTEROL 187 MG/DL (0-200); HDL CHOLESTEROL 36 MG/DL (35-60); LDL CHOLESTEROL 120 MG/DL (50-100); TRIGLYCERIDES 148 MG/DL (20-135)
== END 2018-09-24 23:59 | disposition home or self-care (01) ==
LOC: LAB 10:23
PROVIDERS: ATTEND Family Medicine
DX: E78.00 Pure hypercholesterolemia, unspecified (principal)
CPT/HCPCS: 36415; 80061

== ENCOUNTER 2018-09-28 19:58 | Emergency (ER) | payer OTHER ==
[~2018-09-28] VITALS: Ht 177.8 cm; Wt 81.8 kg
[2018-09-28 20:15] LABS: BASOPHILS % (AUTO) 0.5 % (0-1); EOSINOPHILS # (AUTO) 0.1 X10'3 (0-0.9); EOSINOPHILS % (AUTO) 1.5 % (0-6); HEMATOCRIT 43.9 % (42.0-52.0); HEMOGLOBIN 14.7 g/dl (14.0-17.9); LYMPHOCYTES % (AUTO) 35.2 % (21-51); MEAN CORPUSCULAR HEMOGLOBIN 30.7 PG (27.0-31.0); MEAN CORPUSCULAR HGB CONC 33.5 g/dL (33.0-36.5); MEAN CORPUSCULAR VOLUME 91.5 FL (78-98); MEAN PLATELET VOLUME 8.2 FL (7.4-10.4); MONOCYTES # (AUTO) 0.6 X10'3 (0-0.9); MONOCYTES % (AUTO) 7.5 % (2-12); NEUTROPHILS # (AUTO) 4.7 X10'3 (1.8-7.7); NEUTROPHILS % (AUTO) 55.3 % (42-75); PLATELET COUNT 288 X10'3 (140-440); WHITE BLOOD COUNT 8.5 X10'3 (4.5-11.0)
[2018-09-28] MEDS ORDERED: morphine 4 MG/ML inj SYRINge IV ONE (20:15)
[2018-09-28] MEDS ORDERED: normal saline 1000ml 1,000 ML IV ONE (20:15)
[2018-09-28] MEDS ORDERED: ondansetron/PF 4mg/2ml inj IV ONE (20:15)
[2018-09-28 20:28] LABS: ALANINE AMINOTRANSFERASE 19 U/L (12-78); ALBUMIN 4.6 G/DL (3.4-5.0); ALBUMIN/GLOBULIN RATIO 1.4 (1.1-1.5); ALKALINE PHOSPHATASE 58 IU/L (46-116); ANION GAP 9 (8-16); ASPARTATE AMINO TRANSFERASE 9 U/L (10-37); BILIRUBIN,TOTAL 0.3 MG/DL (0.1-1.0); BLOOD UREA NITROGEN 19 MG/DL (7-18); BUN/CREATININE RATIO 18.1 (5.4-32.0); CHLORIDE 102 MMOL/L (99-107); CREATININE 1.05 MG/DL (0.60-1.10); GLUCOSE 92 MG/DL (70-104); LIPASE 108 U/L (73-393); POTASSIUM 3.7 MMOL/L (3.5-5.1); SODIUM 140 MMOL/L (135-145); TOTAL CARBON DIOXIDE 29.2 MMOL/L (24-32); TOTAL PROTEIN 7.8 G/DL (6.4-8.2); eGFR 82 ML/MIN
[2018-09-28] MEDS ORDERED: LIDOcaine Viscous 15ml cup PO ONE (20:40)
[2018-09-28] MEDS ORDERED: famotidine/PF 10 mg/ml inj IV ONE (20:40)
[2018-09-28] MEDS ORDERED: mag hydrox/Alum hydrox/simeth 30ml oral suspension PO ONE (20:40)
[2018-09-28] MEDS ORDERED: normal saline 1000ML IV soln IVB ONE (21:15)
[2018-09-28 21:54] VITALS: BP 125/74
== END 2018-09-28 21:55 | disposition home or self-care (01) ==
LOC: EEVIPCON 19:59 → ER 19:59
DX: K29.70 Gastritis, unspecified, without bleeding (principal); G43.909 Migraine, unspecified, not intractable, without status migrainosus; K21.9 Gastro-esophageal reflux disease without esophagitis; G89.29 Other chronic pain; E78.1 Pure hyperglyceridemia; Z88.8 Allergy status to other drugs, medicaments and biological substances; Z79.899 Other long term (current) drug therapy
CPT/HCPCS: 36415; 80053; 83690; 85025; 85610; 96361; 96374; 96375; 99283; J2270; J2405; J3490; J7030

== ENCOUNTER 2018-10-09 09:42 | Day surgery (SDC) | payer OTHER ==
[~2018-10-09] VITALS: Ht 177.8 cm; Wt 84.1 kg
[2018-10-09 09:49] VITALS: BP 118/75
[2018-10-09] MEDS ORDERED: fentaNYL/PF 50MCG/1 ML 2ML syringe ONE (09:49)
[2018-10-09] MEDS ORDERED: LIDOcaine Viscous 15ml cup ONE (09:49)
[2018-10-09] MEDS ORDERED: MIDAZolam 5mg/5ml vial ONE (09:49)
[2018-10-09] MEDS ORDERED: OMEP20CA11 PO (10:09)
[2018-10-09] MEDS ORDERED: ELUX100T (10:10)
[2018-10-09] MEDS ORDERED: CETI-102 PO (10:11)
[2018-10-09 10:50] VITALS: BP 126/88
[2018-10-09 11:00] VITALS: BP 109/70
[2018-10-09 11:10] VITALS: BP 107/67
== END 2018-10-09 11:30 | disposition home or self-care (01) ==
LOC: GI LAB 09:42
PROVIDERS: ATTEND Internal Medicine Gastroenterology
DX: K22.2 Esophageal obstruction (principal); K29.70 Gastritis, unspecified, without bleeding; K44.9 Diaphragmatic hernia without obstruction or gangrene
CPT/HCPCS: 43239; 99152; J2250; J3010; J7040; A4620

== ENCOUNTER 2019-04-22 01:34 | Emergency (ER) | payer OTHER ==
[~2019-04-22] VITALS: Ht 177.8 cm; Wt 80.0 kg
[~2019-04-22 01:34] MED LIST changes: +CETI-90 PO; -DOCU-28 PO; +ELUX100T; +OMEP20CA15 PO; -ONDA4TAB12 PO; -PANT-47 PO
[2019-04-22 02:38] LABS: BASOPHILS # (AUTO) 0.1 X10'3 (0-0.2); BASOPHILS % (AUTO) 1.5 % (0-1); EOSINOPHILS # (AUTO) 0.2 X10'3 (0-0.9); EOSINOPHILS % (AUTO) 3.7 % (0-6); HEMATOCRIT 40.1 % (42.0-52.0); HEMOGLOBIN 13.5 g/dl (14.0-17.9); LYMPHOCYTES # (AUTO) 3.1 X10'3 (1.1-4.8); LYMPHOCYTES % (AUTO) 52.9 % (21-51); MEAN CORPUSCULAR HGB CONC 33.7 g/dL (33.0-36.5); MEAN CORPUSCULAR VOLUME 88.9 FL (78-98); MEAN PLATELET VOLUME 8.4 FL (7.4-10.4); MONOCYTES # (AUTO) 0.5 X10'3 (0-0.9); MONOCYTES % (AUTO) 8.4 % (2-12); NEUTROPHILS % (AUTO) 33.5 % (42-75); PLATELET COUNT 255 X10'3 (140-440); RED BLOOD COUNT 4.51 X10'6 (4.70-6.10); RED CELL DISTRIBUTION WIDTH 13.6 % (11.5-14.5); WHITE BLOOD COUNT 5.9 X10'3 (4.5-11.0)
[2019-04-22 02:52] LABS: ALANINE AMINOTRANSFERASE 20 U/L (12-78); ALBUMIN 4.4 G/DL (3.4-5.0); ALBUMIN/GLOBULIN RATIO 1.6 (1.1-1.5); ALKALINE PHOSPHATASE 59 IU/L (46-116); ANION GAP 5 (8-16); ASPARTATE AMINO TRANSFERASE 11 U/L (10-37); BILIRUBIN,TOTAL 0.4 MG/DL (0.1-1.0); BLOOD UREA NITROGEN 17 MG/DL (7-18); BUN/CREATININE RATIO 18.9 (5.4-32.0); CALCIUM 8.9 MG/DL (8.5-10.1); CHLORIDE 106 MMOL/L (99-107); GLUCOSE 88 MG/DL (70-104); LIPASE 105 U/L (73-393); POTASSIUM 3.2 MMOL/L (3.5-5.1); SODIUM 142 MMOL/L (135-145); TOTAL CARBON DIOXIDE 31.1 MMOL/L (24-32); TOTAL PROTEIN 7.1 G/DL (6.4-8.2); eGFR > 90 ML/MIN
[2019-04-22] MEDS ORDERED: normal saline 1000ML IV soln IVB ONE (02:55)
--- NOTE | 2019-04-22 03:17 | NUR ---
urine collected. labs pending. piv in place and pt just finished 1 liter ns. pt polite and cooperative with care. hr 51, otherwise vss.
[2019-04-22 03:42] LABS: CLARITY,URINE CLEAR (Clear); COLOR,URINE YELLOW (Yellow); GLUCOSE, URINE NEGATIVE (Neg); KETONES,URINE NEGATIVE (Neg); LEUKOCYTE ESTERASE ,URINE NEGATIVE (Neg); NITRITES, URINE NEGATIVE (Neg); OCCULT BLOOD,URINE NEGATIVE (Neg); PROTEIN,URINE NEGATIVE (Neg); UROBILINOGEN,URINE 0.2 E.U/dL (0.2-1.0)
[2019-04-22 03:44] LABS: UA COLLECTION TYPE CLN CATCH MIDSTREAM
--- NOTE | 2019-04-22 04:00 | NUR ---
pt reports nausea and continued pain to his abdomen of 7 out of 10 constant pain.
[2019-04-22] MEDS ORDERED: ondansetron/PF 4mg/2ml inj IV ONE (04:35)
--- NOTE | 2019-04-22 04:37 | NUR ---
dr chen talking to Pt about DC insructions.
[2019-04-22 04:41] VITALS: BP 105/65
[2019-04-22 07:03] LABS: PLATELET ESTIMATE NORMAL; TOTAL CELLS COUNTED 100
== END 2019-04-22 05:00 | disposition home or self-care (01) ==
LOC: ER 01:34
DX: K59.00 Constipation, unspecified (principal); R10.32 Left lower quadrant pain; G43.909 Migraine, unspecified, not intractable, without status migrainosus; K21.9 Gastro-esophageal reflux disease without esophagitis; G89.29 Other chronic pain; Z88.8 Allergy status to other drugs, medicaments and biological substances; Z79.899 Other long term (current) drug therapy
CPT/HCPCS: 36415; 80053; 81003; 83690; 85025; 96374; 99283; J2405; J7030

== ENCOUNTER 2019-08-28 23:07 | Emergency (ER) | payer OTHER ==
[~2019-08-28] VITALS: Ht 177.8 cm; Wt 81.8 kg
[2019-08-28 23:11] VITALS: BP 114/79
[2019-08-28] MEDS ORDERED: AMOX500C2 PO (23:50)
[2019-08-28] MEDS ORDERED: XYL25J MM (23:50)
== END 2019-08-28 23:58 | disposition home or self-care (01) ==
LOC: ER 23:07
DX: J02.9 Acute pharyngitis, unspecified (principal); G43.909 Migraine, unspecified, not intractable, without status migrainosus; K21.9 Gastro-esophageal reflux disease without esophagitis; G89.29 Other chronic pain; Z88.6 Allergy status to analgesic agent; Z88.8 Allergy status to other drugs, medicaments and biological substances; Z79.2 Long term (current) use of antibiotics; Z79.899 Other long term (current) drug therapy
CPT/HCPCS: 87081; 87880; 99283

== ENCOUNTER 2019-09-07 21:07 | Emergency (ER) | payer OTHER ==
[~2019-09-07] VITALS: Ht 177.8 cm; Wt 77.3 kg
[~2019-09-07 21:07] MED LIST changes: +AMOX500C2 PO; +XYL25J MM
--- NOTE | 2019-09-07 21:45 | NUR ---
PLAN OF CARE UPDATED . PT ASKED FOR URINE SPECIMAN . PT STATED "HE VOIDED BEFORE COMING TO THE HOSPITAL ,HE WILL VOID , SOON HE GETS SOME FLUIDS "
[2019-09-07] MEDS ORDERED: ketorolac trometh. 30mg/ml inj. IV ONE (22:05)
[2019-09-07] MEDS ORDERED: normal saline 1000ML IV soln IVB ONE (22:05)
[2019-09-07] MEDS ORDERED: ondansetron/PF 4mg/2ml inj IV ONE (22:05)
[2019-09-07 22:06] LABS: BASOPHILS % (AUTO) 0.4 % (0-1); EOSINOPHILS # (AUTO) 0.1 X10'3 (0-0.9); EOSINOPHILS % (AUTO) 1.2 % (0-6); HEMATOCRIT 38.3 % (42.0-52.0); HEMOGLOBIN 12.8 g/dl (14.0-17.9); LYMPHOCYTES # (AUTO) 2.5 X10'3 (1.1-4.8); LYMPHOCYTES % (AUTO) 31.1 % (21-51); MEAN CORPUSCULAR HEMOGLOBIN 30.5 PG (27.0-31.0); MEAN CORPUSCULAR HGB CONC 33.5 g/dL (33.0-36.5); MEAN CORPUSCULAR VOLUME 91.2 FL (78-98); MEAN PLATELET VOLUME 9.5 FL (7.4-10.4); MONOCYTES # (AUTO) 0.7 X10'3 (0-0.9); MONOCYTES % (AUTO) 8.9 % (2-12); NEUTROPHILS # (AUTO) 4.6 X10'3 (1.8-7.7); NEUTROPHILS % (AUTO) 58.4 % (42-75); PLATELET COUNT 211 X10'3 (140-440); RED CELL DISTRIBUTION WIDTH 13.2 % (11.5-14.5); WHITE BLOOD COUNT 7.9 X10'3 (4.5-11.0)
[2019-09-07 22:14] LABS: ALANINE AMINOTRANSFERASE 17 U/L (12-78); ALBUMIN/GLOBULIN RATIO 1.3 (1.1-1.5); ALKALINE PHOSPHATASE 57 IU/L (46-116); ANION GAP 7 (8-16); ASPARTATE AMINO TRANSFERASE 10 U/L (10-37); BILIRUBIN,TOTAL 0.5 MG/DL (0.1-1.0); BLOOD UREA NITROGEN 13 MG/DL (7-18); BUN/CREATININE RATIO 13.3 (5.4-32.0); CALCIUM 8.8 MG/DL (8.5-10.1); CHLORIDE 106 MMOL/L (99-107); CREATININE 0.98 MG/DL (0.60-1.10); ETHANOL < 0.010 GM/DL (0.0-0.010); GLUCOSE 81 MG/DL (70-104); LIPASE 69 U/L (73-393); POTASSIUM 3.3 MMOL/L (3.5-5.1); SODIUM 143 MMOL/L (135-145); TOTAL PROTEIN 7.1 G/DL (6.4-8.2); eGFR 89 ML/MIN
[2019-09-07] MEDS ORDERED: ONDA4TAB12 PO (22:27)
[2019-09-07] MEDS ORDERED: morphine 4 MG/ML inj SYRINge IV ONE (22:35)
[2019-09-07 22:58] VITALS: BP 112/76
== END 2019-09-07 22:59 | disposition home or self-care (01) ==
LOC: ER 21:08
DX: R19.7 Diarrhea, unspecified (principal); R11.2 Nausea with vomiting, unspecified; R10.12 Left upper quadrant pain; G43.909 Migraine, unspecified, not intractable, without status migrainosus; K21.9 Gastro-esophageal reflux disease without esophagitis; G89.29 Other chronic pain; Z88.8 Allergy status to other drugs, medicaments and biological substances; Z79.899 Other long term (current) drug therapy
CPT/HCPCS: 36415; 80053; 80320; 83690; 85025; 96361; 96374; 96375; 99284; J1885; J2270; J2405; J7030

== ENCOUNTER 2019-11-30 08:33 | Outpatient (CLI) | payer BC ==
[~2019-11-30 08:33] MED LIST changes: -AMOX500C2 PO; +ONDA4TAB12 PO
[2019-11-30 09:04] LABS: BASOPHILS # (AUTO) 0.1 X10'3 (0-0.2); BASOPHILS % (AUTO) 0.7 % (0-1); EOSINOPHILS # (AUTO) 0.1 X10'3 (0-0.9); HEMATOCRIT 38.7 % (42.0-52.0); LYMPHOCYTES % (AUTO) 25.3 % (21-51); MEAN CORPUSCULAR HEMOGLOBIN 31.6 PG (27.0-31.0); MEAN CORPUSCULAR HGB CONC 33.5 g/dL (33.0-36.5); MEAN CORPUSCULAR VOLUME 94.4 FL (78-98); MEAN PLATELET VOLUME 7.9 FL (7.4-10.4); MONOCYTES # (AUTO) 0.6 X10'3 (0-0.9); MONOCYTES % (AUTO) 7.3 % (2-12); NEUTROPHILS # (AUTO) 5.2 X10'3 (1.8-7.7); NEUTROPHILS % (AUTO) 65.7 % (42-75); PLATELET COUNT 294 X10'3 (140-440); RED CELL DISTRIBUTION WIDTH 13.3 % (11.5-14.5); WHITE BLOOD COUNT 7.8 X10'3 (4.5-11.0)
[2019-11-30 09:23] LABS: ALANINE AMINOTRANSFERASE 30 U/L (12-78); ALBUMIN 4.2 G/DL (3.4-5.0); ALBUMIN/GLOBULIN RATIO 1.4 (1.1-1.5); ALKALINE PHOSPHATASE 49 IU/L (46-116); ANION GAP 6 (8-16); ASPARTATE AMINO TRANSFERASE 23 U/L (10-37); BILIRUBIN,TOTAL 0.3 MG/DL (0.1-1.0); BLOOD UREA NITROGEN 13 MG/DL (7-18); BUN/CREATININE RATIO 14.4 (5.4-32.0); CHLORIDE 103 MMOL/L (99-107); CHOL/HDL RATIO 5.7 (0.00-4.99); CHOLESTEROL 257 MG/DL (0-200); GLUCOSE 97 MG/DL (70-104); HDL CHOLESTEROL 45 MG/DL (35-60); LDL CHOLESTEROL 160 MG/DL (50-100); POTASSIUM 3.9 MMOL/L (3.5-5.1); SODIUM 140 MMOL/L (135-145); TOTAL CARBON DIOXIDE 30.8 MMOL/L (24-32); TOTAL PROTEIN 7.2 G/DL (6.4-8.2); TRIGLYCERIDES 261 MG/DL (20-135); eGFR > 90 ML/MIN
[2019-11-30 09:35] LABS: HEMOGLOBIN A1C 5.2 % (4.5-6.2)
== END 2019-11-30 23:59 | disposition home or self-care (01) ==
LOC: LAB 08:33
PROVIDERS: ATTEND Family Medicine
DX: Z00.00 Encounter for general adult medical examination without abnormal findings (principal); E78.00 Pure hypercholesterolemia, unspecified; E55.9 Vitamin D deficiency, unspecified; E03.9 Hypothyroidism, unspecified; J18.9 Pneumonia, unspecified organism; R53.83 Other fatigue; E11.9 Type 2 diabetes mellitus without complications; D64.9 Anemia, unspecified
CPT/HCPCS: 36415; 80053; 80061; 82306; 83036; 84402; 84403; 84443; 85025

== ENCOUNTER 2019-12-18 13:17 | Emergency (ER) | payer BC ==
[~2019-12-18] VITALS: Ht 180.3 cm; Wt 87.0 kg
[2019-12-18 13:43] VITALS: BP 128/83
[2019-12-18] MEDS ORDERED: LIDOcaine Viscous 15ml cup MM STA (14:59)
[2019-12-18] MEDS ORDERED: LIDO20SO16 PO (15:02)
== END 2019-12-18 16:04 | disposition home or self-care (01) ==
LOC: EEVIPCON 13:17 → ER 13:17
DX: J02.9 Acute pharyngitis, unspecified (principal); G43.909 Migraine, unspecified, not intractable, without status migrainosus; K21.9 Gastro-esophageal reflux disease without esophagitis; G89.29 Other chronic pain; Z88.8 Allergy status to other drugs, medicaments and biological substances; Z79.899 Other long term (current) drug therapy
CPT/HCPCS: 36415; 87081; 87880; 99283

== ENCOUNTER 2020-01-04 13:05 | Emergency (ER) | payer BC ==
[~2020-01-04] VITALS: Ht 177.8 cm; Wt 94.2 kg
[~2020-01-04 13:05] MED LIST changes: +LIDO20SO16 PO
[2020-01-04 14:13] VITALS: BP 117/84
[2020-01-04 16:33] LABS: MONOTEST NEGATIVE (Neg)
[2020-01-04] MEDS ORDERED: VALA10002 PO (17:02)
[2020-01-04] MEDS ORDERED: NYST1000 PO (17:02)
== END 2020-01-04 17:06 | disposition home or self-care (01) ==
LOC: ER 13:05 → EEVIPCON 13:05 → ER 17:06
DX: J02.8 Acute pharyngitis due to other specified organisms (principal)
CPT/HCPCS: 36415; 86308; 99283

== ENCOUNTER 2020-02-01 17:00 | Outpatient (CLI) | payer BC, OTHER ==
[~2020-02-01 17:00] MED LIST changes: +VALA10002 PO
== END 2020-02-01 18:16 | disposition home or self-care (01) ==
LOC: LAB 17:01 → ER 17:01 → LAB 18:16 → ER 23:16 → LAB 02-02 07:51 → ER 02-02 07:51
PROVIDERS: ATTEND Internal Medicine Infectious Disease
DX: Z20.828 Contact with and (suspected) exposure to other viral communicable diseases (principal)
CPT/HCPCS: 87635; C9803; 99281; 99283

== ENCOUNTER 2020-02-01 20:13 | Emergency (ER) | payer BC ==
[~2020-02-01] VITALS: Ht 177.8 cm; Wt 95.0 kg
[2020-02-01 20:41] LABS: BASOPHILS % (AUTO) 0.3 % (0-1); EOSINOPHILS % (AUTO) 0.5 % (0-6); HEMATOCRIT 41.1 % (42.0-52.0); HEMOGLOBIN 13.8 g/dl (14.0-17.9); LYMPHOCYTES # (AUTO) 1.3 X10'3 (1.1-4.8); MEAN CORPUSCULAR HEMOGLOBIN 30.7 PG (27.0-31.0); MEAN CORPUSCULAR HGB CONC 33.5 g/dL (33.0-36.5); MEAN CORPUSCULAR VOLUME 91.7 FL (78-98); MEAN PLATELET VOLUME 8.5 FL (7.4-10.4); MONOCYTES # (AUTO) 0.8 X10'3 (0-0.9); MONOCYTES % (AUTO) 7.4 % (2-12); NEUTROPHILS # (AUTO) 8.6 X10'3 (1.8-7.7); NEUTROPHILS % (AUTO) 79.8 % (42-75); PLATELET COUNT 277 X10'3 (140-440); RED BLOOD COUNT 4.48 X10'6 (4.70-6.10); RED CELL DISTRIBUTION WIDTH 14.2 % (11.5-14.5); WHITE BLOOD COUNT 10.8 X10'3 (4.5-11.0)
[2020-02-01 20:59] LABS: ALANINE AMINOTRANSFERASE 25 U/L (12-78); ALBUMIN 4.6 G/DL (3.4-5.0); ALBUMIN/GLOBULIN RATIO 1.5 (1.1-1.5); ALKALINE PHOSPHATASE 66 IU/L (46-116); ANION GAP 10 (8-16); ASPARTATE AMINO TRANSFERASE 14 U/L (10-37); BILIRUBIN,TOTAL 0.4 MG/DL (0.1-1.0); BLOOD UREA NITROGEN 14 MG/DL (7-18); BUN/CREATININE RATIO 13.2 (5.4-32.0); CALCIUM 9.2 MG/DL (8.5-10.1); CHLORIDE 104 MMOL/L (99-107); CREATININE 1.06 MG/DL (0.60-1.10); GLUCOSE 133 MG/DL (70-104); POTASSIUM 3.6 MMOL/L (3.5-5.1); SODIUM 140 MMOL/L (135-145); TOTAL CARBON DIOXIDE 26.4 MMOL/L (24-32); TOTAL PROTEIN 7.6 G/DL (6.4-8.2); eGFR 80 ML/MIN
[2020-02-01] MEDS ORDERED: ondansetron 4mg rapidly disintigrating tab PO ONE (21:50)
[2020-02-01] MEDS ORDERED: HYDROcodone/acetaminophen 5mg/325mg tablet PO ONE ×2 (21:50→23:40)
[2020-02-01 22:41] LABS: C-REACTIVE PROTEIN 0.91 MG/DL (0.0-0.5); FERRITIN 31 NG/ML (26-388); LACTATE DEHYDROGENASE 290 U/L (85-227)
[2020-02-01] MEDS ORDERED: iohexol 350MG/ML 100ml bottle IV ONE (22:54)
[2020-02-01] MEDS ORDERED: acetaminophen 325mg tablet PO ONE (23:40)
[2020-02-02 00:49] VITALS: BP 111/78
== END 2020-02-02 00:53 | disposition home or self-care (01) ==
LOC: ER 20:19
DX: R07.9 Chest pain, unspecified (principal); R06.02 Shortness of breath; M79.10 Myalgia, unspecified site; R42 Dizziness and giddiness; R60.0 Localized edema; Z20.828 Contact with and (suspected) exposure to other viral communicable diseases
CPT/HCPCS: 36415; 71045; 71275; 80053; 82728; 83615; 83880; 84145; 84443; 84484; 85025; 85379; 85384; 86140; 87635; 93005; 99285; C9803; Q9967

== ENCOUNTER 2020-02-20 21:23 | Emergency (ER) | payer BC, OTHER ==
[~2020-02-20] VITALS: Ht 177.8 cm; Wt 95.5 kg
[2020-02-20] MEDS ORDERED: ondansetron 4mg rapidly disintigrating tab PO ONE (22:25)
[2020-02-20 22:30] LABS: BASOPHILS # (AUTO) 0.1 X10'3 (0-0.2); BASOPHILS % (AUTO) 0.9 % (0-1); EOSINOPHILS # (AUTO) 0.2 X10'3 (0-0.9); EOSINOPHILS % (AUTO) 3.1 % (0-6); HEMATOCRIT 38.1 % (42.0-52.0); HEMOGLOBIN 13.1 g/dl (14.0-17.9); LYMPHOCYTES # (AUTO) 2.3 X10'3 (1.1-4.8); LYMPHOCYTES % (AUTO) 40.2 % (21-51); MEAN CORPUSCULAR HEMOGLOBIN 31.3 PG (27.0-31.0); MEAN CORPUSCULAR HGB CONC 34.4 g/dL (33.0-36.5); MEAN CORPUSCULAR VOLUME 90.9 FL (78-98); MEAN PLATELET VOLUME 8.5 FL (7.4-10.4); MONOCYTES # (AUTO) 0.7 X10'3 (0-0.9); MONOCYTES % (AUTO) 12.9 % (2-12); NEUTROPHILS # (AUTO) 2.5 X10'3 (1.8-7.7); NEUTROPHILS % (AUTO) 42.9 % (42-75); PLATELET COUNT 289 X10'3 (140-440); RED BLOOD COUNT 4.19 X10'6 (4.70-6.10); RED CELL DISTRIBUTION WIDTH 13.3 % (11.5-14.5); WHITE BLOOD COUNT 5.7 X10'3 (4.5-11.0)
[2020-02-20 22:44] LABS: ALANINE AMINOTRANSFERASE 29 U/L (12-78); ALBUMIN 4.2 G/DL (3.4-5.0); ALBUMIN/GLOBULIN RATIO 1.4 (1.1-1.5); ALKALINE PHOSPHATASE 66 IU/L (46-116); ANION GAP 9 (8-16); ASPARTATE AMINO TRANSFERASE 25 U/L (10-37); BILIRUBIN,TOTAL 0.2 MG/DL (0.1-1.0); BLOOD UREA NITROGEN 8 MG/DL (7-18); BUN/CREATININE RATIO 8.5 (5.4-32.0); CALCIUM 9.3 MG/DL (8.5-10.1); CHLORIDE 105 MMOL/L (99-107); CREATININE 0.94 MG/DL (0.60-1.10); GLUCOSE 94 MG/DL (70-104); POTASSIUM 3.6 MMOL/L (3.5-5.1); SODIUM 141 MMOL/L (135-145); TOTAL CARBON DIOXIDE 27.3 MMOL/L (24-32); TOTAL PROTEIN 7.1 G/DL (6.4-8.2); eGFR > 90 ML/MIN
[2020-02-20 23:48] VITALS: BP 111/71
== END 2020-02-20 23:49 | disposition home or self-care (01) ==
LOC: ER 21:23
DX: R07.9 Chest pain, unspecified (principal); G89.29 Other chronic pain; M54.9 Dorsalgia, unspecified; K21.9 Gastro-esophageal reflux disease without esophagitis; Z87.19 Personal history of other diseases of the digestive system; G43.909 Migraine, unspecified, not intractable, without status migrainosus
CPT/HCPCS: 36415; 71045; 80053; 83880; 84484; 85025; 99285

== ENCOUNTER 2020-02-21 16:24 | Emergency (ER) | payer BC ==
[~2020-02-21] VITALS: Ht 177.8 cm; Wt 100.8 kg
[2020-02-21 16:30] VITALS: BP 134/87
== END 2020-02-21 17:25 | disposition home or self-care (01) ==
LOC: ER 16:25 → EEVIPCON 16:25 → ER 17:25
DX: R53.83 Other fatigue (principal); R07.9 Chest pain, unspecified; G43.909 Migraine, unspecified, not intractable, without status migrainosus; K21.9 Gastro-esophageal reflux disease without esophagitis; G89.29 Other chronic pain; M54.9 Dorsalgia, unspecified; Z87.19 Personal history of other diseases of the digestive system; Z88.8 Allergy status to other drugs, medicaments and biological substances; Z88.6 Allergy status to analgesic agent; Z88.1 Allergy status to other antibiotic agents
CPT/HCPCS: 93005; 99284

== ENCOUNTER 2020-03-23 14:49 | Outpatient (CLI) | payer BC | END 2020-03-23 23:59 | disposition home or self-care (01) | LOC: RAD 14:49 | PROVIDERS: ATTEND Family Medicine | DX: K80.20 Calculus of gallbladder without cholecystitis without obstruction (principal) | CPT/HCPCS: 76700 ==

== ENCOUNTER 2020-05-16 08:46 | Outpatient (CLI) | payer BC ==
[2020-05-16 10:20] LABS: ALANINE AMINOTRANSFERASE 26 U/L (12-78); ALBUMIN 4.2 G/DL (3.4-5.0); ALBUMIN/GLOBULIN RATIO 1.4 (1.1-1.5); ALKALINE PHOSPHATASE 75 IU/L (46-116); ANION GAP 10 (8-16); ASPARTATE AMINO TRANSFERASE 14 U/L (10-37); BILIRUBIN,TOTAL 0.2 MG/DL (0.1-1.0); BLOOD UREA NITROGEN 12 MG/DL (7-18); BUN/CREATININE RATIO 12.4 (5.4-32.0); CALCIUM 9.1 MG/DL (8.5-10.1); CHLORIDE 104 MMOL/L (99-107); CHOL/HDL RATIO 7.9 (0.00-4.99); CHOLESTEROL 197 MG/DL (0-200); CREATININE 0.97 MG/DL (0.60-1.10); GLUCOSE 95 MG/DL (70-104); HDL CHOLESTEROL 25 MG/DL (35-60); LDL CHOLESTEROL 114 MG/DL (50-100); POTASSIUM 3.4 MMOL/L (3.5-5.1); SODIUM 142 MMOL/L (135-145); TOTAL PROTEIN 7.2 G/DL (6.4-8.2); TRIGLYCERIDES 377 MG/DL (20-135); eGFR 89 ML/MIN
[2020-05-16] MEDS ORDERED: HYDR-3972 PO (15:03)
[2020-05-16] MEDS ORDERED: GALC120P IM (15:03)
[2020-05-16] MEDS ORDERED: PROM25TA14 PO (15:03)
[2020-05-16] MEDS ORDERED: FAMO40TA87 PO (15:03)
[2020-05-16] MEDS ORDERED: PREG150C PO (15:03)
[2020-05-16] MEDS ORDERED: PANT40TA54 PO (15:03)
[2020-05-16] MEDS ORDERED: RIME75TA PO (15:03)
[2020-05-16] MEDS ORDERED: TEST200V6 IM (15:03)
[2020-05-16] MEDS ORDERED: DIAZ10TA PO (15:03)
== END 2020-05-16 23:59 | disposition home or self-care (01) ==
LOC: LAB 08:46
PROVIDERS: ATTEND Internal Medicine Cardiovascular Disease
DX: E78.5 Hyperlipidemia, unspecified (principal)
CPT/HCPCS: 36415; 80053; 80061

== ENCOUNTER → 2020-05-19 | Day surgery (SDC) | payer BC ==
[2020-05-16 15:01] LABS: BASOPHILS % (AUTO) 0.8 % (0-1); EOSINOPHILS # (AUTO) 0.1 X10'3 (0-0.9); EOSINOPHILS % (AUTO) 1.6 % (0-6); LYMPHOCYTES # (AUTO) 2.2 X10'3 (1.1-4.8); LYMPHOCYTES % (AUTO) 38.9 % (21-51); MEAN CORPUSCULAR HEMOGLOBIN 27.8 PG (27.0-31.0); MEAN CORPUSCULAR HGB CONC 32.9 g/dL (33.0-36.5); MEAN CORPUSCULAR VOLUME 84.4 FL (78-98); MEAN PLATELET VOLUME 8.8 FL (7.4-10.4); MONOCYTES # (AUTO) 0.5 X10'3 (0-0.9); MONOCYTES % (AUTO) 8.8 % (2-12); NEUTROPHILS # (AUTO) 2.9 X10'3 (1.8-7.7); NEUTROPHILS % (AUTO) 49.9 % (42-75); PRE OP HEMATOCRIT 40.1 % (42.0-52.0); PRE OP HEMOGLOBIN 13.2 g/dL (14.0-17.9); PRE OP PLATELET COUNT 253 X10'3 (140-440); RED BLOOD COUNT 4.76 X10'6 (4.70-6.10); RED CELL DISTRIBUTION WIDTH 13.6 % (11.5-14.5)
[2020-05-16 15:20] LABS: ALBUMIN 4.4 G/DL (3.4-5.0); ALBUMIN/GLOBULIN RATIO 1.4 (1.1-1.5); ALKALINE PHOSPHATASE 79 IU/L (46-116); BLOOD UREA NITROGEN 9 MG/DL (7-18); BUN/CREATININE RATIO 9.8 (5.4-32.0); CHLORIDE 105 MMOL/L (99-107); CREATININE 0.92 MG/DL (0.60-1.10); PRE OP ALT 28 U/L (30-65); PRE OP ANION GAP 10 (8-16); PRE OP AST 27 U/L (10-37); PRE OP BILIRUB, TOTAL 0.2 MG/DL (0.0-1.0); PRE OP GLUCOSE 88 MG/DL (70-104); PRE OP POTASSIUM 3.5 MMOL/L (3.4-5.1); PRE OP SODIUM 142 MMOL/L (135-145); TOTAL CARBON DIOXIDE 26.8 MMOL/L (24-32); TOTAL PROTEIN 7.6 G/DL (6.4-8.2); eGFR > 90 ML/MIN
[2020-05-19] VITALS (9 sets, daily range): BP systolic 118–131; BP diastolic 64–87
[~2020-05-19] VITALS: Ht 180.3 cm; Wt 96.2 kg
[~2020-05-19] MED LIST changes: +BUPIVAcaine/PF 2.5 mg/ml (0.25%) 30ml vial ONE; +DIAZ10TA66 PO; +FAMO40TA87 PO; -GABA600T13 PO; +GALC120P IM; +HYDR-3972 PO; +INDOCYANINE GREEN 25 MG/10 ML VIAL IV ONE; -LIDO20SO16 PO; +LIDOcaine 1% 30ml preserv. free vial ONE; +LIDOcaine 2% (20mg/ml) 5ml vial ONE; +MIDAZolam 1 MG/ML 5ML VIAL ONE; -OMEP20CA15 PO; -ONDA4TAB12 PO; +PANT40TA54 PO; +PREG150C PO; +PROM25TA14 PO; +RIME75TA PO; -SUMA100T16 PO; +TEST200V6 IM; -VALA10002 PO; -XYL25J MM; +acetaminophen 1,000mg/100ml IV 100 ML IV ONE; +ceFAZolin 2gm in dextrose, iso 50 ML IV ONE; +dexamethasone sod phosphate 4mg/ml inj. ONE; +famotidine 20mg tablet PO ONE; +fentaNYL/PF 50MCG/1 ML 2ML syringe ONE; +glycopyrrolate 0.2mg/ml inj ONE; +ketorolac trometh. 30mg/ml inj. ONE; +meperidine/PF 25mg/ml syringe IV PRN; +morphine 2 MG/ML inj. syringe IV PRN; +neostigmine methylsulfate 1 MG/ML 10ml vial ONE; +ondansetron/PF 4mg/2ml inj IV PRN; +ondansetron/PF 4mg/2ml inj ONE; +oxyCODONE/APAP 10/325mg tablet PO ONE; +oxyCODONE/APAP 10/325mg tablet PO PRN; +proCHLORperazine 10 MG/2 ml inj IV PRN; +propofol inj 20 ML IV ONE; +ringers solution, lacted 1,000 ML IV SCH; +rocuronium 10mg/ml inj IV ONE; +sevoflurane 250ml liquid IH ONE
--- NOTE | 2020-05-19 08:15 | NUR ---
NO BAR CODE PRESENT ON IC GREEN MEDICATION. ADMINISTERED BY RN
--- NOTE | 2020-05-19 12:12 | NUR ---
Received from OR via [facility] , accompanied by Anesthesiologist JOSE and report given by Anesthesiolgist. PATIENT WITH 20G PIV IN LEFT UE RUNNIGN LR AT 100. DENIES PAIN CURRENTLY. 3 ABDOMINAL BANDAIDS PRESENT WTIH NO DRAINAGE- 10L MASK ON WITH 100% SATURATIONS. Addendum: 05/19/20 at 1218 by Basil Tariq RN, RN Amended: Links added.
[2020-05-19] MEDS: morphine 4 MG/ML inj SYRINge IV PRN ×2 (12:22→12:34)
--- NOTE | 2020-05-19 13:32 | NUR ---
I HAVE REVIEWED D/C INSTRUCTIONS WITH PATIENT AND FAMILY AND THEY HAVE VERBALIZED UNDERSTANDING. PATIENT D/C HOME WITH ALL BELONGINGS AND FAMILY GAVE TRANSPORT HOME. CO2 DISCOMFORT IS ONLY REMAINING COMPLAINT. PATIENT PRESENT TO TAKE PATIENT HOME. DRESSINGS CDI TO ABDOMEN. VSS. ASSISTED WITH DRESSING. HAS MET ALL DC CRITERIA FOR HOME. PRESCRIPTION ALREADY PICKED UP BY SPOUSE. MEDICATED ORALLY WITH ONE PAIN PILL PRIOR TO DC. Addendum: 05/19/20 at 1350 by Basil Em - DEMETRIA AUGUSTIN Amended: Links added.
== END | disposition home or self-care (01) ==
LOC: PAS 07:33
PROVIDERS: ATTEND Surgery
DX: K80.10 Calculus of gallbladder with chronic cholecystitis without obstruction (principal); K42.9 Umbilical hernia without obstruction or gangrene; G89.29 Other chronic pain; G47.30 Sleep apnea, unspecified; G43.909 Migraine, unspecified, not intractable, without status migrainosus; Z87.19 Personal history of other diseases of the digestive system; Z79.899 Other long term (current) drug therapy; Z88.8 Allergy status to other drugs, medicaments and biological substances; Z20.822 Contact with and (suspected) exposure to COVID-19; Z82.49 Family history of ischemic heart disease and other diseases of the circulatory system; Z82.3 Family history of stroke; Z83.3 Family history of diabetes mellitus; Z82.61 Family history of arthritis; Z83.2 Family history of diseases of the blood and blood-forming organs and certain disorders involving the immune mechanism
CPT/HCPCS: 36415; 47563; 49585; 80053; 82948; 85025; 87635; J0131; J1100; J1885; J2001; J2250; J2270; J2405; J2704; J2710; J3010; J3490; J7030; S2900; A4215; A4618; J7120

== ENCOUNTER 2020-05-25 11:17 | Emergency (ER) | payer BC ==
[~2020-05-25] VITALS: Ht 177.8 cm; Wt 96.4 kg
[~2020-05-25 11:17] MED LIST changes: -BUPIVAcaine/PF 2.5 mg/ml (0.25%) 30ml vial ONE; -INDOCYANINE GREEN 25 MG/10 ML VIAL IV ONE; -LIDOcaine 1% 30ml preserv. free vial ONE; -LIDOcaine 2% (20mg/ml) 5ml vial ONE; -MIDAZolam 1 MG/ML 5ML VIAL ONE; -acetaminophen 1,000mg/100ml IV 100 ML IV ONE; -ceFAZolin 2gm in dextrose, iso 50 ML IV ONE; -dexamethasone sod phosphate 4mg/ml inj. ONE; -famotidine 20mg tablet PO ONE; -fentaNYL/PF 50MCG/1 ML 2ML syringe ONE; -glycopyrrolate 0.2mg/ml inj ONE; -ketorolac trometh. 30mg/ml inj. ONE; -meperidine/PF 25mg/ml syringe IV PRN; -morphine 2 MG/ML inj. syringe IV PRN; -neostigmine methylsulfate 1 MG/ML 10ml vial ONE; -ondansetron/PF 4mg/2ml inj IV PRN; -ondansetron/PF 4mg/2ml inj ONE; -oxyCODONE/APAP 10/325mg tablet PO ONE; -oxyCODONE/APAP 10/325mg tablet PO PRN; -proCHLORperazine 10 MG/2 ml inj IV PRN; -propofol inj 20 ML IV ONE; -ringers solution, lacted 1,000 ML IV SCH; -rocuronium 10mg/ml inj IV ONE; -sevoflurane 250ml liquid IH ONE
[2020-05-25] MEDS ORDERED: ondansetron/PF 4mg/2ml inj IV ONE (11:30)
[2020-05-25] MEDS ORDERED: morphine 4 MG/ML inj SYRINge IV PRN (11:30)
[2020-05-25] MEDS ORDERED: normal saline 1000ML IV soln IVB ONE (11:30)
[2020-05-25 11:31] VITALS: BP 139/87
[2020-05-25 12:25] LABS: BASOPHILS % (AUTO) 0.5 % (0-1); EOSINOPHILS # (AUTO) 0.1 X10'3 (0-0.9); EOSINOPHILS % (AUTO) 1.9 % (0-6); HEMATOCRIT 39.4 % (42.0-52.0); LYMPHOCYTES # (AUTO) 1.9 X10'3 (1.1-4.8); LYMPHOCYTES % (AUTO) 28.9 % (21-51); MEAN CORPUSCULAR HEMOGLOBIN 27.8 PG (27.0-31.0); MEAN CORPUSCULAR VOLUME 84.4 FL (78-98); MEAN PLATELET VOLUME 8.7 FL (7.4-10.4); MONOCYTES # (AUTO) 0.6 X10'3 (0-0.9); MONOCYTES % (AUTO) 9.8 % (2-12); NEUTROPHILS # (AUTO) 3.8 X10'3 (1.8-7.7); NEUTROPHILS % (AUTO) 58.9 % (42-75); PLATELET COUNT 282 X10'3 (140-440); RED BLOOD COUNT 4.67 X10'6 (4.70-6.10); RED CELL DISTRIBUTION WIDTH 14.1 % (11.5-14.5); WHITE BLOOD COUNT 6.4 X10'3 (4.5-11.0)
[2020-05-25 12:31] LABS: ALANINE AMINOTRANSFERASE 38 U/L (12-78); ALBUMIN/GLOBULIN RATIO 1.3 (1.1-1.5); ALKALINE PHOSPHATASE 75 IU/L (46-116); ANION GAP 10 (8-16); ASPARTATE AMINO TRANSFERASE 20 U/L (10-37); BILIRUBIN,TOTAL 0.2 MG/DL (0.1-1.0); BLOOD UREA NITROGEN 12 MG/DL (7-18); BUN/CREATININE RATIO 13.8 (5.4-32.0); CHLORIDE 102 MMOL/L (99-107); CREATININE 0.87 MG/DL (0.60-1.10); GLUCOSE 99 MG/DL (70-104); LIPASE 66 U/L (73-393); POTASSIUM 3.9 MMOL/L (3.5-5.1); SODIUM 140 MMOL/L (135-145); TOTAL PROTEIN 7.2 G/DL (6.4-8.2); eGFR > 90 ML/MIN
[2020-05-25] MEDS ORDERED: morphine 4 MG/ML inj SYRINge IV ONE (12:50)
[2020-05-25] MEDS ORDERED: ketorolac trometh. 30mg/ml inj. IV ONE (12:50)
== END 2020-05-25 13:56 | disposition home or self-care (01) ==
LOC: EEVIPCON 11:18 → ER 11:18
DX: G89.18 Other acute postprocedural pain (principal); G43.909 Migraine, unspecified, not intractable, without status migrainosus; K21.9 Gastro-esophageal reflux disease without esophagitis; Z90.49 Acquired absence of other specified parts of digestive tract; Z98.890 Other specified postprocedural states; Z88.8 Allergy status to other drugs, medicaments and biological substances; Z79.899 Other long term (current) drug therapy
CPT/HCPCS: 36415; 73502; 80053; 83690; 85025; 96374; 96375; 96376; 99284; J1885; J2270; J2405; J7030; 96361

== ENCOUNTER → 2020-09-24 | Outpatient (CLI) | payer BC ==
[2020-09-24 13:32] LABS: BASOPHILS % (AUTO) 0.5 % (0-1); EOSINOPHILS # (AUTO) 0.1 X10'3 (0-0.9); EOSINOPHILS % (AUTO) 0.8 % (0-6); HEMOGLOBIN 13.5 g/dl (14.0-17.9); LYMPHOCYTES # (AUTO) 1.2 X10'3 (1.1-4.8); LYMPHOCYTES % (AUTO) 19.3 % (21-51); MEAN CORPUSCULAR HEMOGLOBIN 27.8 PG (27.0-31.0); MEAN CORPUSCULAR HGB CONC 32.9 g/dL (33.0-36.5); MEAN CORPUSCULAR VOLUME 84.5 FL (78-98); MEAN PLATELET VOLUME 8.4 FL (7.4-10.4); MONOCYTES # (AUTO) 0.4 X10'3 (0-0.9); MONOCYTES % (AUTO) 5.7 % (2-12); NEUTROPHILS # (AUTO) 4.7 X10'3 (1.8-7.7); NEUTROPHILS % (AUTO) 73.7 % (42-75); PLATELET COUNT 340 X10'3 (140-440); RED BLOOD COUNT 4.86 X10'6 (4.70-6.10); RED CELL DISTRIBUTION WIDTH 13.5 % (11.5-14.5); WHITE BLOOD COUNT 6.4 X10'3 (4.5-11.0)
[2020-09-24 13:38] LABS: HEMOGLOBIN A1C 5.6 % (4.5-6.2)
[2020-09-24 13:45] LABS: ALANINE AMINOTRANSFERASE 45 U/L (12-78); ALBUMIN 4.7 G/DL (3.4-5.0); ALBUMIN/GLOBULIN RATIO 1.3 (1.1-1.5); ALKALINE PHOSPHATASE 81 IU/L (46-116); ANION GAP 9 (8-16); ASPARTATE AMINO TRANSFERASE 24 U/L (10-37); BILIRUBIN,TOTAL 0.3 MG/DL (0.1-1.0); BLOOD UREA NITROGEN 15 MG/DL (7-18); CALCIUM 8.8 MG/DL (8.5-10.1); CHLORIDE 103 MMOL/L (99-107); CHOL/HDL RATIO 9.3 (0.00-4.99); CHOLESTEROL 335 MG/DL (0-200); CREATININE 1.07 MG/DL (0.60-1.10); GLUCOSE 116 MG/DL (70-104); HDL CHOLESTEROL 36 MG/DL (35-60); LDL CHOLESTEROL 227 MG/DL (50-100); POTASSIUM 4.3 MMOL/L (3.5-5.1); SODIUM 141 MMOL/L (135-145); TOTAL CARBON DIOXIDE 29.1 MMOL/L (24-32); TOTAL PROTEIN 8.3 G/DL (6.4-8.2); TRIGLYCERIDES 347 MG/DL (20-135); eGFR 80 ML/MIN
== END | disposition home or self-care (01) ==
LOC: ER 12:55
PROVIDERS: ATTEND Family Medicine
DX: E11.9 Type 2 diabetes mellitus without complications (principal); D64.9 Anemia, unspecified; R79.9 Abnormal finding of blood chemistry, unspecified; R53.83 Other fatigue; E78.5 Hyperlipidemia, unspecified; R53.81 Other malaise; N40.0 Benign prostatic hyperplasia without lower urinary tract symptoms
CPT/HCPCS: 36415; 80053; 80061; 83036; 84153; 84402; 84403; 85025

== ENCOUNTER 2020-10-11 12:58 | Outpatient (CLI) | payer BC | END 2020-10-11 23:59 | disposition home or self-care (01) | LOC: RAD 12:58 | PROVIDERS: ATTEND Family Medicine | DX: N28.9 Disorder of kidney and ureter, unspecified (principal); R31.9 Hematuria, unspecified | CPT/HCPCS: 76770 ==

== ENCOUNTER 2020-10-18 09:53 | Outpatient (CLI) | payer BC ==
[2020-10-18] MEDS ORDERED: iohexol 300mg/ml 100ml inj. ONE (10:08)
== END 2020-10-18 23:59 | disposition home or self-care (01) ==
LOC: 64 CT 09:53
PROVIDERS: ATTEND Family Medicine
DX: K76.0 Fatty (change of) liver, not elsewhere classified (principal); K86.89 Other specified diseases of pancreas; J98.11 Atelectasis
CPT/HCPCS: 74178; Q9967

== ENCOUNTER 2020-11-01 12:38 | Outpatient (CLI) | payer OTHER | END 2020-11-01 23:59 | disposition home or self-care (01) | LOC: LAB 12:38 | PROVIDERS: ATTEND Internal Medicine Infectious Disease | DX: Z00.00 Encounter for general adult medical examination without abnormal findings (principal) ==

== ENCOUNTER 2020-11-15 10:52 | Outpatient (CLI) | payer BC ==
[2020-11-15] MEDS ORDERED: GADOTERATE MEGLUMINE 7.5 MMOL/15 ML VIAL IV ONE (14:12)
== END 2020-11-15 23:59 | disposition home or self-care (01) ==
LOC: RAD 10:52
PROVIDERS: ATTEND Family Medicine
DX: K76.0 Fatty (change of) liver, not elsewhere classified (principal)
CPT/HCPCS: 74183; A9575

== ENCOUNTER 2021-02-20 10:01 | Outpatient (CLI) | payer BC ==
[2021-02-20 10:32] LABS: BASOPHILS % (AUTO) 0.6 % (0-1); EOSINOPHILS % (AUTO) 0.8 % (0-6); HEMATOCRIT 40.2 % (42.0-52.0); HEMOGLOBIN 13.4 g/dl (14.0-17.9); LYMPHOCYTES # (AUTO) 1.5 X10'3 (1.1-4.8); LYMPHOCYTES % (AUTO) 28.9 % (21-51); MEAN CORPUSCULAR HEMOGLOBIN 28.7 PG (27.0-31.0); MEAN CORPUSCULAR HGB CONC 33.3 g/dL (33.0-36.5); MEAN CORPUSCULAR VOLUME 86.3 FL (78-98); MEAN PLATELET VOLUME 8.4 FL (7.4-10.4); MONOCYTES # (AUTO) 0.4 X10'3 (0-0.9); MONOCYTES % (AUTO) 8.4 % (2-12); NEUTROPHILS # (AUTO) 3.2 X10'3 (1.8-7.7); NEUTROPHILS % (AUTO) 61.3 % (42-75); PLATELET COUNT 304 X10'3 (140-440); RED BLOOD COUNT 4.65 X10'6 (4.70-6.10); RED CELL DISTRIBUTION WIDTH 13.8 % (11.5-14.5); WHITE BLOOD COUNT 5.2 X10'3 (4.5-11.0)
[2021-02-20 11:01] LABS: CHLORIDE 105 MMOL/L (99-107); POTASSIUM 3.8 MMOL/L (3.5-5.1); SODIUM 142 MMOL/L (135-145)
[2021-02-20 11:04] LABS: ALANINE AMINOTRANSFERASE 37 U/L (12-78); ALBUMIN 4.5 G/DL (3.4-5.0); ALBUMIN/GLOBULIN RATIO 1.4 (1.1-1.5); ALKALINE PHOSPHATASE 71 IU/L (46-116); ANION GAP 8 (8-16); ASPARTATE AMINO TRANSFERASE 15 U/L (10-37); BILIRUBIN,TOTAL 0.3 MG/DL (0.1-1.0); BLOOD UREA NITROGEN 10 MG/DL (7-18); BUN/CREATININE RATIO 9.8 (5.4-32.0); CALCIUM 9.1 MG/DL (8.5-10.1); CHOL/HDL RATIO 8.7 (0.00-4.99); CHOLESTEROL 226 MG/DL (0-200); CREATININE 1.02 MG/DL (0.60-1.10); GLUCOSE 100 MG/DL (70-104); HDL CHOLESTEROL 26 MG/DL (35-60); LDL CHOLESTEROL 135 MG/DL (50-100); TOTAL CARBON DIOXIDE 28.9 MMOL/L (24-32); TOTAL PROTEIN 7.7 G/DL (6.4-8.2); TRIGLYCERIDES 255 MG/DL (20-135); eGFR 84 ML/MIN
[2021-02-24 10:54] LABS: TESTOSTERONE, FREE, DIRECT 13.1 pg/mL (8.7-25.1)
== END 2021-02-20 23:59 | disposition home or self-care (01) ==
LOC: LAB 10:01
PROVIDERS: ATTEND Family Medicine
DX: R79.9 Abnormal finding of blood chemistry, unspecified (principal); E78.00 Pure hypercholesterolemia, unspecified; D75.1 Secondary polycythemia
CPT/HCPCS: 36415; 80053; 80061; 84402; 84403; 85025

== ENCOUNTER 2021-04-06 14:22 | Outpatient (CLI) | payer BC ==
[2021-04-06 15:15] LABS: BASOPHILS % (AUTO) 0.4 % (0-1); EOSINOPHILS # (AUTO) 0.1 X10'3 (0-0.9); EOSINOPHILS % (AUTO) 1.3 % (0-6); HEMATOCRIT 37.8 % (42.0-52.0); LYMPHOCYTES # (AUTO) 2.1 X10'3 (1.1-4.8); LYMPHOCYTES % (AUTO) 29.8 % (21-51); MEAN CORPUSCULAR HEMOGLOBIN 28.9 PG (27.0-31.0); MEAN CORPUSCULAR HGB CONC 34.3 g/dL (33.0-36.5); MEAN CORPUSCULAR VOLUME 84.1 FL (78-98); MEAN PLATELET VOLUME 8.3 FL (7.4-10.4); MONOCYTES # (AUTO) 0.6 X10'3 (0-0.9); MONOCYTES % (AUTO) 8.1 % (2-12); NEUTROPHILS # (AUTO) 4.3 X10'3 (1.8-7.7); NEUTROPHILS % (AUTO) 60.4 % (42-75); PLATELET COUNT 298 X10'3 (140-440); RED BLOOD COUNT 4.49 X10'6 (4.70-6.10); RED CELL DISTRIBUTION WIDTH 13.6 % (11.5-14.5)
[2021-04-06 15:41] LABS: ALANINE AMINOTRANSFERASE 38 U/L (12-78); ALBUMIN 4.5 G/DL (3.4-5.0); ALBUMIN/GLOBULIN RATIO 1.7 (1.1-1.5); ALKALINE PHOSPHATASE 67 IU/L (46-116); ANION GAP 7 (8-16); ASPARTATE AMINO TRANSFERASE 18 U/L (10-37); BILIRUBIN,TOTAL 0.2 MG/DL (0.1-1.0); BLOOD UREA NITROGEN 10 MG/DL (7-18); CHLORIDE 100 MMOL/L (99-107); CHOLESTEROL 270 MG/DL (0-200); GLUCOSE 86 MG/DL (70-104); HDL CHOLESTEROL 27 MG/DL (35-60); LDL CHOLESTEROL 128 MG/DL (50-100); POTASSIUM 3.8 MMOL/L (3.5-5.1); SODIUM 138 MMOL/L (135-145); TOTAL CARBON DIOXIDE 30.8 MMOL/L (24-32); TOTAL PROTEIN 7.2 G/DL (6.4-8.2); TRIGLYCERIDES 548 MG/DL (20-135); eGFR 86 ML/MIN
[2021-04-06 16:33] LABS: HEMOGLOBIN A1C 5.7 % (4.5-6.2)
== END 2021-04-06 23:59 | disposition home or self-care (01) ==
LOC: LAB 14:22
DX: E78.00 Pure hypercholesterolemia, unspecified (principal); E55.9 Vitamin D deficiency, unspecified; R73.9 Hyperglycemia, unspecified; R53.83 Other fatigue; Z79.899 Other long term (current) drug therapy
CPT/HCPCS: 36415; 80053; 80061; 82306; 83036; 84443; 85025